=== PATIENT | female | born 1950 | race Asian ===

== ENCOUNTER 2020-09-16 08:28 | Day surgery (SDC) | payer OTHER ==
[~2020-09-16] VITALS: Ht 165 cm; Wt 68.0 kg
[2020-09-16] MEDS ORDERED: diphenhydrAMINE 50 MG/ML VIAL ONE (10:06)
[2020-09-16] MEDS ORDERED: fentaNYL citrate 0.05 MG/ML VIAL ONE (10:07)
[2020-09-16] MEDS ORDERED: LIDOCAINE 2% 100 MG/5 ML UJET TP ONE (10:07)
[2020-09-16] MEDS ORDERED: MIDAZOLAM 5 MG/5 ML VIAL ONE (10:07)
[2020-09-16] MEDS ORDERED: MIDAZOLAM 2 MG/2 ML VIAL IVP ONE (10:35)
[2020-09-16] MEDS ORDERED: fentaNYL citrate 0.05 MG/ML VIAL IVP ONE (10:35)
== END 2020-09-16 11:00 | disposition home or self-care (01) ==
LOC: MDS 08:28 → MMU 08:29 → MDS 11:00
PROVIDERS: ATTEND Internal Medicine Gastroenterology
DX: K74.69 Other cirrhosis of liver (principal); K29.70 Gastritis, unspecified, without bleeding; B18.2 Chronic viral hepatitis C; Z79.899 Other long term (current) drug therapy
CPT/HCPCS: 43239; J2250; J3010; J7030; J1200